=== PATIENT | male | born 1940 | race Two or more races ===

== ENCOUNTER 2023-03-13 09:24 | Emergency (ER) | payer OTHER ==
[~2023-03-13] VITALS: Ht 170.2 cm; Wt 77.1 kg
[2023-03-13] MEDS ORDERED: LASIX20 MG PO (09:39)
[2023-03-13] MEDS ORDERED: ENTRESTO 49 MG1 EACH PO (09:39)
[2023-03-13] MEDS ORDERED: CARVEDILOL ER40 MG PO (09:39)
[2023-03-13] MEDS ORDERED: LIPITOR40 M1 PO (09:39)
[2023-03-13] MEDS ORDERED: SYNTHROID100 MCG PO (09:40)
[2023-03-13 10:19] LABS: HEMATOCRIT 33.5 % (39.0-48.0); HEMOGLOBIN 11.2 g/dL (13-16.00); MEAN CELL VOLUME 103.1 fL (80.0-100.00); MEAN CORPUSCULAR HEMOGLOBIN 34.5 pg (27.00-32.0); MEAN CORPUSCULAR HGB CONC 33.4 g/dl (32.0-36.0); RED BLOOD COUNT 3.25 M/uL (4.00-6.00); RED CELL DISTRIBUTION WIDTH 19.5 % (11.5-14.5)
[2023-03-13 10:20] LABS: PLATELET COUNT 122 K/uL (150-450)
== END 2023-03-13 11:50 | disposition home or self-care (01) ==
LOC: ER 09:25
PROVIDERS: General Practice
DX: R05.9 Cough, unspecified (principal); E11.9 Type 2 diabetes mellitus without complications; Z79.84 Long term (current) use of oral hypoglycemic drugs; I10 Essential (primary) hypertension; Z87.898 Personal history of other specified conditions; Z91.013 Allergy to seafood; Z20.822 Contact with and (suspected) exposure to COVID-19; Z95.0 Presence of cardiac pacemaker